=== PATIENT | female | born 1980 | race Two or more races ===

== ENCOUNTER 2024-11-26 04:52 | Emergency (ER) | payer OTHER ==
[~2024-11-26] VITALS: Ht 170.2 cm; Wt 86.2 kg
[2024-11-26] MEDS ORDERED: 0.9 % SODIUM CHLORIDE 1,000 ML IV STA (05:00)
[2024-11-26] MEDS ORDERED: THIAMINE HCL 100 MG/ML 2 ML VIAL IV STA (05:01)
[2024-11-26] MEDS ORDERED: FLUMAZENIL 0.5 MG/5 ML ML IV STA (05:02)
[2024-11-26] MEDS ORDERED: NALOXONE HCL 0.4 MG/ML AMPUL IV STA (05:02)
[2024-11-26] MEDS ORDERED: METOCLOPRAMIDE HCL 5 MG/ML VIAL IM STA (05:03)
[2024-11-26] MEDS ORDERED: FAMOtidine 10 MG/ML (4ML VIAL) IV PUSH STA (05:03)
[2024-11-26] MEDS ORDERED: THIAMINE HCL 100 MG/ML 2 ML VIAL ONE (05:06)
[2024-11-26] MEDS ORDERED: METOCLOPRAMIDE HCL 5 MG/ML VIAL ONE (05:06)
[2024-11-26] MEDS ORDERED: FAMOTIDINE/PF 20 MG/2 ML VIAL ONE (05:07)
[2024-11-26 05:43] LABS: BASO % 0.3 % (0.0-2.0); EOS % 0.5 % (1.0-4.0); HEMATOCRIT 40.3 % (48.0-68.0); LYMPH # 3.27 (3.0-8.20); LYMPH % 16.8 % (18.0-38.0); MEAN CORPUSCULAR HEMOGLOBIN 26.6 pg (30.0-42.0); MONO # 0.69 (0.2-2.20); MONO % 3.5 % (1.0-10.0); NEUT # 15.24 (6.1-14.40); NEUT % 78.3 % (37.0-67.0); PLATELET COUNT 292 K/uL (163-369); RED BLOOD COUNT 4.97 M/uL (4.00-6.00); RED CELL DISTRIBUTION WIDTH 15.9 % (11.5-14.5)
[2024-11-26 05:46] LABS: HEMOGLOBIN 13.2 g/dL (16.5-21.5)
[2024-11-26 06:05] LABS: ALBUMIN 3.8 gm/dL (3.4-5.0); BILIRUBIN TOTAL 0.25 mg/dL (0.3-1.2); CALCIUM 8.3 mg/dL (8.5-10.1); CREATININE SERUM 0.75 mg/dL (0.55-1.02); GFR 84.74; POTASSIUM 5.57 mEq/L (3.5-5.1); TOTAL PROTEIN 7.8 gm/dL (6.4-8.2)
== END 2024-11-26 10:25 | disposition home or self-care (01) ==
LOC: ER 04:52 → EDBD 04:59 → ER 04:59
DX: F10.10 Alcohol abuse, uncomplicated (principal)